=== PATIENT | female | born 1960 | race Caucasian/White ===

== ENCOUNTER 2022-03-12 13:25 | Emergency (ER) | payer MEDICAID ==
[~2022-03-12] VITALS: Ht 175.3 cm; Wt 83.9 kg
[2022-03-12 13:28] VITALS: BP 135/81
[2022-03-12] MEDS ORDERED: LID5T TP (15:02)
[2022-03-12] MEDS ORDERED: DICL20GE TP (15:02)
[2022-03-12] MEDS ORDERED: IBUP-2213 PO (15:02)
--- NOTE | 2022-03-12 15:08 | NUR ---
JARED WRAP X 1 TO R ARM + CMS
--- NOTE | 2022-03-12 15:34 | NUR ---
Patient discharged with v/s stable. Written and verbal after care instructions given and explained. Patient alert, oriented and verbalized understanding of instructions. Ambulatory with steady gait. All questions addressed prior to discharge. ID band removed. Patient advised to follow up with PMD. Rx of LIDODERM given. Patient educated on indication of medication including possible reaction and side effects. Opportunity to ask questions provided and answered.
== END 2022-03-12 15:34 | disposition home or self-care (01) ==
LOC: MED 13:25
DX: S46.911A Strain of unspecified muscle, fascia and tendon at shoulder and upper arm level, right arm, initial encounter (principal); J45.909 Unspecified asthma, uncomplicated; X58.XXXA Exposure to other specified factors, initial encounter; Y93.89 Activity, other specified; Y92.89 Other specified places as the place of occurrence of the external cause; Y99.8 Other external cause status
CPT/HCPCS: 99283

== ENCOUNTER 2022-04-23 13:31 | Emergency (ER) | payer MEDICAID ==
[~2022-04-23] VITALS: Ht 175.3 cm; Wt 83.9 kg
[~2022-04-23 13:31] MED LIST: DICL20GE TP; IBUP-2213 PO; LID5T TP
[2022-04-23 14:13] VITALS: BP 133/93
[2022-04-23] MEDS ORDERED: PROM118S5 PO (15:23)
[2022-04-23] MEDS ORDERED: SUD30 PO (15:23)
[2022-04-23] MEDS ORDERED: IBUP-2213 PO (15:23)
--- NOTE | 2022-04-23 15:32 | NUR ---
Patient discharged with v/s stable. Written and verbal after care instructions given and explained. Patient alert, oriented and verbalized understanding of instructions. Ambulatory with steady gait. All questions addressed prior to discharge. ID band removed. Patient advised to follow up with PMD. Rx of SUDAFED, MOTRIN given. Patient educated on indication of medication including possible reaction and side effects. Opportunity to ask questions provided and answered.
== END 2022-04-23 15:32 | disposition home or self-care (01) ==
LOC: MED 13:31
DX: J06.9 Acute upper respiratory infection, unspecified (principal); J45.909 Unspecified asthma, uncomplicated; Z79.899 Other long term (current) drug therapy; Z79.1 Long term (current) use of non-steroidal anti-inflammatories (NSAID)
CPT/HCPCS: 99283